=== PATIENT | male | born 1980 | race Caucasian/White ===

== ENCOUNTER 2019-08-30 12:41 | Outpatient (CLI) | payer SELFPAY ==
[2019-08-31 07:42] LABS: COVID-19 RT-PCR UVMMC Result Negative (Negative)
== END 2019-08-30 13:01 ==
PROVIDERS: PCP Internal Medicine; Visit Provider Surgery
DX: Z11.59 Encounter for screening for other viral diseases (principal); Z01.818 Encounter for other preprocedural examination
CPT/HCPCS: U0003

== ENCOUNTER 2019-09-04 07:00 | Day surgery (SDC) | payer SELFPAY ==
--- NOTE | 2019-09-04 06:46 | W.PREOPHP ---
Date of service: 09/04/19 Assessment and Plan Assessment and plan (1) Right inguinal hernia: Status: Acute Assessment and plan: A\\ 38 year old male with a right inguinal hernia with increasing pain P\\ Right Inguinal hernia repair with mesh Risks, benefits and complications have been reviewed. Complications include but are not limited to bleeding, pain, infection, injury to underlying structures like bowel and adverse reaction to the medication. Questions were entertained and answered to their satisfaction and they wished to proceed. No guarantees were given or implied. TAP block for pain control was discussed with the patient. Plan is for Tylenol and ibuprofen for pain unless the nerve block doesnt work. We discussed narcotic Pain medications and potential for addiction. Discussed safe disposal of pain medication if he gets some prescribed History of Present Illness Narrative: Mr. Cutler is a pleasant 38 year old male seen in the office back in June for a right inguinal hernia that had started to bother him. He first noted it about 2-3 years ago. He has been putting off getting it repaired because he has no health insurance. He has noted increased aching in his right groin and right thigh. He also has noted difficulty urinating. Has trouble getting a stream going. Has not had his prostate checked. He is otherwise healthy and very active. No cardiac or respiratory issues in the past. right inguinal 2 Yes >1 year long car trips, heavy lifting, intercourse and sitting lying down and other (getting up and walking) denies chills, constipation, cramping, diarrhea, fever(s), nausea, vomiting or other His Surgery was postponed due to the COVID outbreak. Since June he has had increasing pain. Patient was tested for COVID-19 and was negative Review of Systems Constitutional Constitutional: Denies fever(s), Denies headache(s) and Denies malaise ENT Ears, Nose, Mouth, and Throat: Denies dysphagia and Denies headache(s) Cardiovascular Cardiovascular: Denies chest pain, Denies chest pain at rest, Denies chest pain with activity, Denies irregular heart rhythm, Denies palpitations and Denies dyspnea Respiratory Respiratory: Denies cough and Denies dyspnea Gastrointestinal Gastrointestinal: Reports as per HPI, Denies change in stool character, Denies dysphagia, Denies dyspepsia and Denies heartburn Neurologic Neurologic: Denies headache(s) Endocrine Endocrine: Denies palpitations PFSH Medical History Anxiety Dislocation, elbow closed IBS (irritable bowel syndrome) Surgical History Colonoscopy - IV Sedation 2001 S/P excision of lipoma (Acute ~2015) [place] teeth extracted (Acute) Family History Other Crohns disease Social History Smoking/Tobacco Use Status: Current-Occasional Tobacco Type: smokeless tobacco Alcohol Intake: current Alcohol Intake frequency: 0-2 drinks per day Alcohol type: beer Drug use: Rarely Substance use type: marijuana Do you feel safe at home: Yes Do you feel safe in your relationship?: Yes Additional Social history: not in a relationship currently Meds Home Medications and Allergies Home Medications Medication Instructions Recorded Confirmed Type acetaminophen [Mapap Extra 500 mg PO Q6H PRN PRN #30 tab 12/09/14 09/04/19 Rx Strength] ibuprofen 400 mg PO Q6H PRN PRN #30 tab 12/09/14 09/04/19 Rx Allergies Allergy/AdvReac Type Severity Reaction Status Date / Time No Known Allergies Allergy Unverified 09/04/19 07:08 Exam Const General: cooperative and no acute distress HENMT Head: normocephalic and atraumatic Eyes Pupils: PERRL Resp Effort & Inspection: normal respiratory effort Auscultation: clear to auscultation bilaterally Cardio Rate: regular rate Rhythm: regular rhythm Heart Sounds: no gallops, no murmurs and no rubs GI Palpation: soft, no hepatosplenomegaly, hernia (Right inguinal) and tender
--- NOTE | 2019-09-04 06:53 | PDOC.DSDIS_ITS ---
Discharge Plan Disposition Patient Disposition: HOME Condition: Good Discharge Details Reason For Visit: Right Inguinal hernia repair Attending Provider: Cindy Heredia Primary Care Provider: Donnell Ramsey Home Meds and New Rx's Prescriptions: Continued ibuprofen 400 MG tablet 400 mg PO Q6H PRN PRNQty: 30 RF: 0 acetaminophen [Mapap Extra Strength] 500 MG tablet 500 mg PO Q6H PRN PRNQty: 30 RF: 0 Discharge Instructions Instructions: Inguinal Hernia Repair (GEN) Additional Instructions: Activity at Home after surgery: 1. Make sure you walk outside at least 4 times per day 2. You should be able to climb a flight of stairs 3. No driving while in pain or taking pain medications 4. No strenuous activity or heavy lifting for 4 weeks (open surgery) Diet, Nutrition, & wound healin. Avoid alcohol until after you are recovered from your surgery 2. Make sure to eat plenty of lean protein (meat, fish, eggs, cottage cheese, beans) 3. Eat a variety of fruits and vegetables. Eat plenty of high fiber foods to avoid constipation. 4. Drink plenty of liquids to stay hydrated and avoid constipation Pain Medications: 1. Tylenol 650 mg every 6 hours and Ibuprofen 600 mg every 6 hours. You may alternate between the Tylenol and Ibuprofen 2. If a narcotic has been prescribed take as directed only for breakthrough pain For Constipation: 1. Take Milk of Magnesia or MiraLax as needed for constipation Other: 1. You may shower daily. Do not scrub the incisions 2. Do not soak the incisions for 1 week 3. You may alternate ice and heat as needed for pain and swelling Wound Care: 1. Keep the incisions clean and dry Please call our office if you develop: 1. Fevers >101.5 2. Nausea or Vomiting 3. Worsening pain 4. Redness and thick discharge from the wounds If after hours please call the Hospital at and ask to speak to the on-call surgeon Stand Alone Forms: Arturo Gamez (RADHA) Referrals: Cindy Heredia MD [ [facility] STAFF PHYSICIAN] - 09/20/19 8:00 am Activity:: No lifting, pulling or pushing >20 lb x 4 weeks Diet:: As Tolerated Discharge Orders Discharge Orders: Discharge Order (Routine); Ordered 09/04/19 Ordered By: Cindy Heredia DS: Diagnosis Discharge Diagnosis (1) Right inguinal hernia: Status: Acute
[2019-09-04 06:58] VITALS: BP 134/83; PULSE 60; RESP 20; TEMP 36.5; O2SAT 99
[2019-09-04] MEDS: Lactated Ringers 1,000 ML 80 ML IV (07:31)
[2019-09-04] MEDS: ceFAZolin 2 GM/50 ML BAG IVPB (08:45)
[2019-09-04] MEDS: Lidocaine 1% Multi-Dose 50 ML VIAL (08:47)
[2019-09-04] MEDS: Acetaminophen 500 MG TAB 1000 MG PO (10:07)
[2019-09-04 10:22] VITALS: BP 104/74; PULSE 59; RESP 18; TEMP 36.5; O2SAT 98
[2019-09-04 10:49] VITALS: BP 106/77; PULSE 57; RESP 18; TEMP 36.8; O2SAT 97
[2019-09-04 11:13] VITALS: BP 112/79; PULSE 59; RESP 18; TEMP 36.7; O2SAT 98
--- NOTE | 2019-09-06 07:22 | W.PM.OP ---
Date of service: 09/04/19 Time of Service: 09:00 Operative Note Operative Note DATE OF PROCEDURE: 09/04/19 PRE-OP DIAGNOSIS: Right inguinal hernia POST-OP DIAGNOSIS: same PROCEDURE: Right Inguinal hernia repair with mesh SURGEON: Cindy Heredia COMPOUND MACHINE OPERATOR: Jarrod Boogie ANESTHESIA: MAC (ASA 2/ Vishnu Reinoso CRNA) ESTIMATED BLOOD LOSS: 15 PATHOLOGY: none sent COMPLICATIONS: None Patient was transported to: same day Patient's condition: stable Implants: BARD MESH LOT [id number] REF [id number] EXP 2023-08-27 Indications: 38 year old male with a right inguinal hernia with increasing pain Recommend Right Inguinal hernia repair with mesh Risks, benefits and complications have been reviewed. Complications include but are not limited to bleeding, pain, infection, injury to underlying structures like bowel and adverse reaction to the medication. Questions were entertained and answered to their satisfaction and they wished to proceed. No guarantees were given or implied. TAP block for pain control was discussed with the patient. Plan is for Tylenol and ibuprofen for pain unless the nerve block doesnt work. We discussed narcotic Pain medications and potential for addiction. Discussed safe disposal of pain medication if he gets some prescribed Findings: Large direct and small indirect hernia Procedure Description: After informed consent was obtained the patient was taken to the operating room. A spinal was done by anesthesia and the patient was then placed in a supine position on the Operating room table. Monitors and SCDs were applied and a timeout was done. The patient's name, date of , procedure type, procedure site, allergies to medications, preoperative antibiotic, and DVT prophylaxis were all reviewed. Fire risk was assessed. Next anesthesia did a tap block on the right side under ultrasound guidance. Please see their separate dictation. Once anesthesia was done the abdomen was clipped of vic in the Right inguinal area and the area was then was prepped and draped in a sterile surgical fashion. 1% lidocaine was injected into the dermis in the right lower quadrant. An incision was made with a 10 blade in the right lower quadrant. Dissection was done with cautery through the subcutaneous tissues and Hunter's fascia down to the external oblique fascia. The external ring was identified and the external oblique fascia was opened sharply through the external ring. The cut fascia was grasped with hemostats the cord structures were identified and a Kwame drain was placed around them. The cremasteric muscle was dissected away from the cord structures using both cautery and blunt dissection. A large direct hernia was identified. A larg cord lipoma was then also noted and dissected away from the cord structures. A small indirect hernia was also noted. A 3 x 6 piece of mesh was then cut to size and attached to the lacunar ligament using a 2-0 Prolene double armed suture. The mesh was secured laterally and medially with a 2-0 Prolene, with a running suture. The tails of the mesh were wrapped around the cord structures effectively cinching down the internal ring. Once the mesh was secured the tissues were irrigated with some normal saline. No bleeding was identified. The external oblique fascia was re-approximated using 2-0 Vicryl running suture. The Hunter's fascia was re-approximated using interrupted 3-0 Vicryl. The dermis was re-approximated with a running 4-0 Vicryl subcuticular stitch. The skin was cleaned and dried and skin affix was applied. The patient was woken up and taken back to recovery in stable condition. There were no immediate complications. Sponge, instrument and needle counts were correct at the end of the case x2.
== END 2019-09-04 12:05 | disposition home or self-care (01) ==
LOC: SUR 07:00
PROVIDERS: PCP Internal Medicine; Visit Provider Surgery
PROC: (CPT 49505; principal; 2019-09-04 08:15)
DX: K40.90 Unilateral inguinal hernia, without obstruction or gangrene, not specified as recurrent (principal); D17.6 Benign lipomatous neoplasm of spermatic cord; G89.18 Other acute postprocedural pain
CPT/HCPCS: 49505; 76942; NC; C1781; J0690; J1100; J1885; J2001; J2405

== ENCOUNTER 2019-11-14 08:32 | Emergency (ER) | payer SELFPAY ==
[2019-11-14] VITALS (25 sets, daily range): BP systolic 115–143; BP diastolic 71–88; PULSE 59–103; RESP 14–30; TEMP 36.3; O2SAT 95–99
--- NOTE | 2019-11-14 08:30 | RT.EKG_ITS ---
APPROVED REPORT Exam: Resting ECG Patient Location: E HR:78 bpm ECG Measurements Heart Rate 78 AXIS VT 142 P 49 QRSd 105 QRS 22 QT 391 T 41 QTc 445 <Conclusion> Sinus rhythm...normal P axis, V-rate 60- 99 Normal Electrocardiogram
--- NOTE | 2019-11-14 09:01 | ED.GENADUL_ITS ---
Discharge Plan Disposition Patient Disposition: HOME Condition: Improving Discharge Details Chief Complaint: Anxiety Clinical Impression: Anxiety Primary Care Provider: Jennifer Ahn ED Provider: Artemio Narayanan Home Meds and New Rx's Prescriptions: Continued bupropion HCl [Wellbutrin SR] 100 mg tablet sustained-release 12 hr 100 mg PO TID Qty: 270 RF: 1 escitalopram oxalate 10 mg tablet 10 mg PO QHS Qty: 30 RF: 0 propranolol 10 mg tablet 10 mg PO BID PRN (Reason: panic, anxiety) Qty: 60 RF: 0 hydroxyzine HCl 50 mg tablet 50 mg PO Q6H PRN (Reason: anxiety) Qty: 60 RF: 1 ibuprofen 400 MG tablet 400 mg PO Q6H PRN PRNQty: 30 RF: 0 acetaminophen [Mapap Extra Strength] 500 MG tablet 500 mg PO Q6H PRN PRNQty: 30 RF: 0 Discharge Instructions Instructions: Anxiety (ED) Additional Instructions: You are seen by both our care management team and [facility]. Please begin journaling as discussed with Heidi from [facility] services as well as pursue your outpatient plan to establish cognitive behavioral therapy. Continue your regular medications. We will arrange for a follow-up with you in clinic. Return if you have thoughts of harming herself or others, worsening mood or any other acute concern. Medical Decision Making 38-year-old male presents with escalating anxiety over weeks to months time. He has establish care with Jennifer Ahn and has started to take bupropion, escitalopram, propranolol. He states he has ongoing anxiety. Regarding a new relationship and the comanagement of his daughter with his ex-. He has seen behavioral health specialist in the outpatient setting. He does not feel suicidal but feels as if his thoughts are sometimes racing, he has had poor sleep. Medical screening examination performed and patient stable for further evaluation. Case discussed with the patient's behavioral health specialist Mark Lepe, who does feel the patient merits outpatient treatment and that he has had some compulsive and obsessive behaviors. Case discussed with mental health screener who evaluated the patient and has recommended cognitive behavioral therapy and journaling. Patient also seen by critical care specialist regarding some of his financial stressors. He stable and appropriate for outpatient management at this time. HPI General Mode of arrival: ambulatory . Date/Time Provider Initiated Documentation: 11/14/19 08:33 . Limitations to Documentation: no limitations . Information obtained by: patient . History of Present Illness 38 year old M presents to the emergency department with the chief complaint of Mood disruption, described as moderate, Quality is described as dull, and is localized to the head. Patient reports no radiation. Patient started experiencing this week(s) and it has been constant. No relieving factors improve symptom(s), No exacerbating factors reported . Patient notes no other symptoms.. Patient did receive the following treatments prior to arrival, none Related Data Home Medications Medication Instructions Recorded Confirmed acetaminophen [Mapap Extra 500 mg PO Q6H PRN PRN #30 tab 12/09/14 11/14/19 Strength] ibuprofen 400 mg PO Q6H PRN PRN #30 tab 12/09/14 11/14/19 hydroxyzine HCl 50 mg tablet 50 mg PO Q6H PRN #60 tab 10/29/19 11/14/19 escitalopram oxalate 10 mg tablet 10 mg PO QHS #30 tab 11/08/19 11/14/19 propranolol 10 mg tablet 10 mg PO BID PRN #60 tab 11/08/19 11/14/19 bupropion HCl 100 mg tablet,12 hr 100 mg PO TID #270 tab 11/13/19 11/14/19 sustained-release Previous Rx's Medication Instructions Recorded acetaminophen [Mapap Extra 500 mg PO Q6H PRN PRN #30 tab 12/09/14 Strength] ibuprofen 400 mg PO Q6H PRN PRN #30 tab 12/09/14 hydroxyzine HCl 50 mg tablet 50 mg PO Q6H PRN #60 tab 10/29/19 escitalopram oxalate 10 mg tablet 10 mg PO QHS #30 tab 11/08/19 propranolol 10 mg tablet 10 mg PO BID PRN #60 tab 11/08/19 bupropion HCl 100 mg tablet,12 hr 100 mg PO TID #270 tab 11/13/19 sustained-release Allergies Allergy/AdvReac Type Severity Reaction Status Date / Time No Known Allergies Allergy Unverified 11/14/19 08:37 General Stated Complaint: Anxiety KAMRAN: 3 Review of Systems Narrative: 10/08 systems reviewed and otherwise neg. no SI or HI PFSH Medical History Anxiety Anxiety state, unspecified (Acute) Depression (Chronic) Per Pt Hx, Per presentation (via tel 11/08/19) .. Hx Effexor (unclear response). Mo on Wellbutrin. [ ] SSRI, Wellbutrin Dislocation, elbow closed IBS (irritable bowel syndrome) Insurance coverage problems (Acute) Fin Assistance w/ [facility]. Financial ruin while (ex- not paying bills), aggravated by divorce. Right inguinal hernia (Resolved) Family History Other Crohns disease Social History Smoking/Tobacco Use Status: Current-Occasional Tobacco Type: smokeless tobacco Alcohol Intake: current Alcohol Intake frequency: 0-2 drinks per day Alcohol type: beer Drug use: Rarely Substance use type: marijuana Do you feel safe at home: Yes Do you feel safe in your relationship?: Yes Additional Social history: not in a relationship currently Exam Narrative Exam Narrative: GEN: awake, alert, oriented 3. Pleasant, well groomed, interactive. HEAD: Normocephalic, atraumatic ENT: Mucous membranes moist, oropharynx unremarkable, External ear exam unremarkable EYES: PERRL, EOMI NECK: Full ROM, no NIGHAT, no menigismus CHEST/RESP: Nontender, clear to auscultation bilateral, no wheeze/rhonchi/rales CARDIOVASCULAR: RRR, no murmur, rub adelaide. 2+ Rad pulse bilateral ABDOMEN: Soft, nontender, no mass. +Bowel sounds EXT: Full ROM, no edema, no rash Neuro: Grossly normal neurologic exam, conversant, interactive. Psych: Speech fluent, thoughts congruent, affect anxious, speech somewhat pressed. No homicidality and no suicidality Course Vital Signs Vital signs: Vital Signs Temperature 36.3 C L 11/14/19 08:41 Pulse 76 11/14/19 08:41 Respiratory Rate 18 11/14/19 08:41 Blood Pressure 143/79 H 11/14/19 08:41 Pulse Oximetry 98 11/14/19 08:41 Temperature 36.3 C L 11/14/19 08:41 Temperature Source Temporal Artery Scan 11/14/19 08:41 Pulse 76 11/14/19 08:41 Respiratory Rate 18 11/14/19 08:41 Respiratory Effort Non-Labored 11/14/19 08:47 Blood Pressure 143/79 H 11/14/19 08:41 Blood Pressure Position Supine 11/14/19 08:41 Pulse Oximetry 98 11/14/19 08:41 Oxygen Delivery Method Room Air 11/14/19 08:41 Oxygen Flow Rate 0 11/14/19 08:41 Pain Level 0 11/14/19 08:41
--- NOTE | 2019-11-14 09:55 | NUR.NOTE ---
Nursing Note: Telehealth notes from , faxed to [facility] Heidi
--- NOTE | 2019-11-14 11:10 | PDOC.MHCN_ITS ---
Date of service: 11/14/19 Time of Service: 11:10 Mental Health Crisis Note Presenting Issue How did you arrive at the ED and why did you come: Herminio arrived to the ER on his own as he is experiencing significant anxiety. Precipitating Factors Herminio denied current SI and HI. He reports a hx of fighting thoughts but deneid intent or plan. He identified his daughter as his deterrrant. Disposition BEHAVIOR: Herminio is cooperative and friendly however, presents as very manic and overly talkative. He at one point talked for 30 mins straight explaining the reason for his visit today. This clinician had to interrupt him numerous times to redirect him. He reports that he is struggling today to even be at work and had to leave to come to the ER. EYE CONTACT: Herminio made good eye contact. MOOD: Herminio reported that he is very anxious about his relationship with his girlfriend he has had for 2 years and worries excessively about her not being honest and/or leaving him. AFFECT: Affect is difficult to assess as he has a mask on the entire visit. APPETITE: Herminio reported that he has not eaten well in the last 5 day's only eating one meal a day or drinking protein shakes. SLEEP(trouble falling/staying asleep: Herminio reports that he is only getting 4 to 4.5 hours of sleep a night. Plan Encouraged Herminio to start journaling instead of being reactive to his anxiety. Encouraged Herminio to outreach to his PCP regarding his medications that he only started a couple of weeks ago and explain the level of anxiety he is feeling. Encouraged him to outreach to his counselor who he has not started up with again and request to be put on a cancellation list. Encouraged him to see if the counselor does CBT therapy. This may be helpful. Herminio will meet with [employer] today to discuss insurance options. This plan was discussed with Dr. Narayanan. Signature Clinician's Name/Title: Heidi Merchant MS, [facility] Emergency Services Clinician
--- NOTE | 2019-11-14 12:03 | NUR.NOTE ---
Nursing Note: Faxed to Heidi Merchant [facility], Telehealth [phone]. Adri Hooker.
--- NOTE | 2019-11-14 13:19 | NUR.NOTE ---
Nursing Note: Referral faxed to PCP for follow up. Adri Hooker
--- NOTE | 2019-11-14 14:01 | CMPROGNOTE_ITS ---
- If Service Date Differs Date of service: 11/14/19 Time of Service: 14:01 Care Management Progress Note JAZMIN meets with Herminio to offer assistance with financial issues. Herminio shares details of his divorce and the financial mess that resulted from it. He talks about feeling stressed and says the anxiety is so severe at times that he struggles to function. His primary care physician at [facility] has requested his medical records from his previous provider. Once those record s have been received, the plan is for Herminio to meet with Dr. De Leon, psychiatrist, for a medication consultation. Herminio also has an upcoming appointment in November with José Miguel Couch to begin therapy, but expresses concerns over how he is going to pay for therapy when he has no health insurance. JAZMIN offers to make a referral to [employer] to enlist their assistance in exploring insurance options and Herminio is agreeable to this. Herminio is notified that the [employer] Connect portal is down until November 18, so he knows [employer] will not be able to apply for insurance until the portal is back up and running. JAZMIN discusses with him that a therapist at [facility] may be a good option for him, as their rates are based on a sliding scale. JAZMIN gives Herminio an [facility] business card and encourages him to call the crisis line as needed.
== END 2019-11-14 12:39 | disposition home or self-care (01) ==
PROVIDERS: Emergency Provider Emergency Medicine; PCP Student in an Organized Health Care Education/Training Program
DX: F41.8 Other specified anxiety disorders (principal)
CPT/HCPCS: 93005; 99283; 93010

== ENCOUNTER 2020-05-27 01:19 | Outpatient (CLI) | payer SELFPAY ==
--- NOTE | 2020-05-27 08:30 | DI.US_ITS ---
EXAM: US SCROTUM CLINICAL HISTORY: right scrotal pain ? epid cyst,N50.82. TECHNIQUE: Scrotal ultrasound performed using grayscale, color-flow and spectral Doppler analysis. COMPARISON: US US OR ANESTHESIA from 09/04/2019 FINDINGS: Right testicle: 3.0 x 3.3 x 3.3 cm Left testicle: 3.2 x 2.3 x 3.2 cm Echogenicity: Normal. Contour: Smooth. Mass: None seen. Microlithiasis: None. Hydrocele: Small bilateral Variocele: None. Epididymis: Normal. No epididymal cyst. DOPPLER: Color: Symmetric and uniform, no hyperemia. IMPRESSION: Normal appearing bilateral testicles and epididymi. Small bilateral hydroceles.. DATA REPOSITORY:
== END 2020-05-27 01:39 ==
PROVIDERS: PCP Student in an Organized Health Care Education/Training Program; Visit Provider Nurse Practitioner Gerontology
DX: N50.82 Scrotal pain (principal); N43.3 Hydrocele, unspecified
CPT/HCPCS: 76870

== ENCOUNTER 2020-06-11 02:29 | Outpatient (CLI) | payer SELFPAY ==
[2020-06-13 09:03] LABS: COVID-19 RT-PCR UVMMC Result Negative (Negative)
== END 2020-06-11 02:30 | disposition home or self-care (01) ==
LOC: LBO 02:30
PROVIDERS: PCP Student in an Organized Health Care Education/Training Program; Visit Provider Urology
DX: Z20.822 Contact with and (suspected) exposure to COVID-19 (principal); Z01.818 Encounter for other preprocedural examination
CPT/HCPCS: U0003

== ENCOUNTER 2020-06-15 07:18 | Day surgery (SDC) | payer SELFPAY ==
[2020-06-15 07:19] VITALS: BP 120/79; PULSE 89; RESP 16; TEMP 36.5; O2SAT 96
[2020-06-15] MEDS: Lactated Ringers 1,000 ML 80 ML IV (07:53)
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
[2020-06-15] MEDS: ceFAZolin 1 GM/50 ML BAG IVPB (08:58)
[2020-06-15] MEDS: Lidocaine 2% Jelly 6 ML SYR (09:00)
--- NOTE | 2020-06-15 09:17 | W.PM.DSUDISC ---
Discharge Plan Disposition Patient Disposition: HOME Condition: Stable Discharge Details Reason For Visit: urinary hesitancy Attending Provider: Jeffery Bello Primary Care Provider: Jennifer Ahn Home Meds and New Rx's Prescriptions: No Action propranolol 10 mg tablet 10 mg PO BID PRN (Reason: panic, anxiety) Qty: 60 RF: 0 mirtazapine [Remeron] 15 mg tablet 15 mg PO QHS Qty: 30 RF: 0 hydroxyzine HCl 50 mg tablet 50 mg PO Q6H PRN (Reason: anxiety) Qty: 60 RF: 1 bupropion HCl 450 mg tablet extended release 24 hr 450 mg PO DAILY RF: 0 escitalopram oxalate 20 mg tablet 20 mg PO DAILY RF: 0 alprazolam 1 mg tablet 1 mg PO BID RF: 0 ibuprofen 400 MG tablet 400 mg PO Q6H PRN PRNQty: 30 RF: 0 acetaminophen [Mapap Extra Strength] 500 MG tablet 500 mg PO Q6H PRN PRNQty: 30 RF: 0 Discharge Instructions Additional Instructions: Followup 4 to 6 weeks - either provider Activity:: Activity as Tolerated Remove Dressings/Wound Care:: 24 hours Shower/Bathe:: 24 hours Diet:: As Tolerated Discharge Orders Discharge Orders: Discharge Order (Routine); Ordered 06/15/20 Ordered By: Jeffery Bello DS: Diagnosis Discharge Diagnosis (1) Difficulty urinating: Status: Acute
[2020-06-15] MEDS: Phenazopyridine 200 MG TAB PO (09:31)
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
[2020-06-15 09:50] VITALS: BP 115/79; PULSE 61; RESP 16; TEMP 36.6; O2SAT 98
== END 2020-06-15 10:25 | disposition home or self-care (01) ==
PROVIDERS: PCP Student in an Organized Health Care Education/Training Program; Visit Provider Urology
PROC: 0TJB8ZZ Inspection of Bladder, Via Natural or Artificial Opening Endoscopic (ICD-10-PCS; CPT 52000; principal; 2020-06-15 08:30)
DX: N32.89 Other specified disorders of bladder (principal); R39.198 Other difficulties with micturition; N32.3 Diverticulum of bladder
CPT/HCPCS: 52000; NC; J0690; J1885; J2001; J2405

== ENCOUNTER 2020-07-13 14:51 | Outpatient (REF) | payer SELFPAY ==
[2020-07-13 15:24] LABS: HCT 51.9 % (40.0-50.0); HGB 17.8 g/dL (13.5-17.5); MCH 30.8 pg (27.0-33.0); MCHC 34.3 % (32.0-36.0); MCV 89.9 fL (80-95); MPV 11.1 fL (8.0-11.0); Platelet Count 177 10^3/uL (130-400); RBC 5.77 10^6/uL (4.36-5.78); RDW 12.3 % (11.8-14.1); RDW-SD 40.6 fL; WBC 6.62 10^3/uL (4.4-10.8)
[2020-07-13 16:12] LABS: ALT 39 U/L (16-63); AST 16 U/L (15-37); Albumin 4.4 g/dL (3.4-5.0); Alkaline Phosphatase 83 U/L (46-116); Anion Gap 12.6 mmol/L (3-11); BUN 11 mg/dL (7-18); Bilirubin, Total 0.7 mg/dL (0.2-1.0); CO2 24.4 mmol/L (21.0-32.0); Calcium 9.3 mg/dL (8.5-10.1); Chloride 102 mmol/L (98-107); Glucose 102 mg/dL (74-106); Potassium 4.4 mmol/L (3.5-5.1); Sodium 139 mmol/L (136-145); TSH (W/Ref FT4) 1.68 uIU/mL (0.36-3.74); Total Protein 7.5 g/dL (6.4-8.2)
[2020-07-13 16:34] LABS: Calculated LDL 99 mg/dL (<100); Cholesterol 184 mg/dL (<200); HDL Cholesterol 64 mg/dL (40-60); Triglyceride 106 mg/dL (<150)
[2020-07-18 17:01] LABS: Testosterone, Total 762 ng/dL (240-950)
== END 2020-07-13 14:52 | disposition home or self-care (01) ==
LOC: LBN 14:51
PROVIDERS: PCP Student in an Organized Health Care Education/Training Program; Visit Provider Nurse Practitioner Gerontology
DX: R53.83 Other fatigue (principal); N52.9 Male erectile dysfunction, unspecified
CPT/HCPCS: 80053; 80061; 84403; 85027; 84443